=== PATIENT | male | born 1960 | race Caucasian/White ===

== ENCOUNTER → 2016-05-27 | Outpatient (REF) | payer MEDICARE, OTHER ==
[~2016-05-27] MED LIST: ASPI81TA85 PO; CELE-19 PO; ELID1CRE10 TOP; ELIQ5TAB PO; FLEC50TA PO; GARL1000 PO; GINK120C4 PO; GLUCTAB6 PO; KETO-30 TOP; LIPI10TA PO; MONT10TA2 PO; MULTTAB22 PO; SPIR25TA2 PO; TRAM50TA2 PO; TRIPCAP4 PO; VERA240C PO; VITA1CAP7 PO; VITA400C2 PO; ZYRT10CA PO; tps cream
== END ==
LOC: M LAB REF 11:43
PROVIDERS: ATTEND Physician Assistant
DX: J02.9 Acute pharyngitis, unspecified (principal)

== ENCOUNTER → 2017-03-02 | Outpatient (REF) | payer MEDICARE, OTHER | LOC: M LAB REF 09:12 | DX: J02.9 Acute pharyngitis, unspecified (principal) | CPT/HCPCS: 87081 ==

== ENCOUNTER → 2017-10-01 | Outpatient (REF) | payer MEDICARE, OTHER ==
[2017-10-01 18:19] LABS: FERRITIN 205 NG/ML (26-388); IRON (FE) 103 UG/DL (65-175); PERCENT SATURATION 31.6 % (19.7-50.0); TOTAL IRON BINDING CAPACITY 326 UG/DL (250-450)
== END ==
LOC: M LAB REF 17:26
DX: Z01.812 Encounter for preprocedural laboratory examination (principal)
CPT/HCPCS: 83550

== ENCOUNTER → 2018-07-18 | Outpatient (CLI) | payer MEDICARE, OTHER ==
[~2018-07-18] MED LIST changes: -CELE-19 PO; +CELE1CAP4 PO; +D-3-50003 PO; -ELID1CRE10 TOP; +ELID1CRE11 TOP; +FLEC50HA PO; -FLEC50TA PO; +GINK120C3 PO; -GINK120C4 PO; +SPIR-10 PO; -SPIR25TA2 PO; -VITA1CAP7 PO; -VITA400C2 PO; +VITA400C7 PO
--- NOTE | 2018-07-18 16:27 | REP ---
Clinical: Contusion. Technique: AP and lateral views of the right forearm. Findings: No acute fracture or dislocation. Skeletal structures, joint spaces, and surrounding soft tissues appear normal. No subcutaneous emphysema or radiodense foreign body. Impression: No acute fracture or dislocation. Electronically Signed by Mike Novoa MD 07/18/2018 04:19 P
== END ==
LOC: M ADAMS 16:07
PROVIDERS: ATTEND Physician Assistant
DX: S57.81XA Crushing injury of right forearm, initial encounter (principal); X58.XXXA Exposure to other specified factors, initial encounter; Y92.9 Unspecified place or not applicable

== ENCOUNTER 2021-01-25 06:30 | Emergency (ER) | payer OTHER ==
[~2021-01-25] VITALS: Ht 190.5 cm; Wt 86.4 kg
[~2021-01-25 06:30] MED LIST changes: -ASPI81TA85 PO; +ASPI81TA86 PO; +MONT10TA10 PO; -MONT10TA2 PO
[2021-01-25] MEDS ORDERED: NS 1,000 ML IV ONE (08:25)
[2021-01-25] MEDS ORDERED: ONDANSETRON 4MG/2ML VIAL IV ONE (08:25)
[2021-01-25 08:52] LABS: BASO % 0.1 % (0.0-1.0); EOS % 0.5 % (0.0-3.0); HEMATOCRIT 42.1 % (42.0-52.0); HEMOGLOBIN 14.5 g/dl (13.5-17.5); LYMPH # 0.9 10^3/uL (1.5-5.0); LYMPH % 12.1 % (24.0-44.0); MEAN CORPUSCULAR HEMOGLOBIN 29.2 pg (27.0-33.0); MEAN CORPUSCULAR HGB CONC 34.4 g/dl (32.0-36.5); MEAN CORPUSCULAR VOLUME 84.7 fl (80.0-96.0); MONO # 0.9 10^3/uL (0.0-0.8); MONO % 11.3 % (2.0-8.0); NEUTROPHILS # 5.8 10^3/uL (1.5-8.5); NEUTROPHILS % 75.4 % (36.0-66.0); PLATELET COUNT, AUTOMATED 227 10^3/uL (150-450); RED BLOOD COUNT 4.97 10^6/uL (4.30-6.10); WHITE BLOOD COUNT 7.7 10^3/uL (4.0-10.0)
[2021-01-25 09:24] LABS: ALBUMIN 2.9 GM/DL (3.2-5.2); BILIRUBIN,DIRECT 0.2 MG/DL (0.0-0.2); BILIRUBIN,TOTAL 0.8 MG/DL (0.2-1.0); TOTAL PROTEIN 6.2 GM/DL (6.4-8.2)
[2021-01-25] MEDS ORDERED: METOCLOPRAMIDE INJ 10MG/2ML VIAL (J2765 PER 1) IV ONE (10:00)
[2021-01-25] MEDS ORDERED: ACETAMINOPHEN 500 MG TAB PO ONE (10:00)
[2021-01-25] MEDS ORDERED: REGL10TA6 PO (11:03)
[2021-01-25 11:24] VITALS: BP 124/82
== END 2021-01-25 11:25 | disposition home or self-care (01) ==
LOC: M ED 06:30
DX: U07.1 COVID-19 (principal); R11.0 Nausea; R51.9 Headache, unspecified; I48.91 Unspecified atrial fibrillation; Z88.1 Allergy status to other antibiotic agents; Z79.899 Other long term (current) drug therapy
CPT/HCPCS: 80047; 80076; 83690; 85025; 96361; 96374; 96375; 99284; J2405; J2765

== ENCOUNTER → 2021-02-06 | Outpatient (REF) | payer OTHER ==
[~2021-02-06] MED LIST changes: -MONT10TA10 PO; +MONT10TA97 PO; +REGL10TA6 PO
[2021-02-06 12:37] LABS: TOTAL PROTEIN 7.1 GM/DL (6.4-8.2)
[2021-02-07 11:13] LABS: ALBUMIN % 59.1 % (55.8-66.1); ALPHA-1-GLOBULIN % 5.1 % (2.9-4.9); ALPHA-1-GLOBULINS 0.36 GM/DL (0.17-0.41); ALPHA-2-GLOBULINS 0.79 GM/DL (0.42-0.99); ALPHA-2-GLOBULINS % 11.1 % (7.1-11.8); BETA-1-GLOBULINS 0.46 GM/DL (0.28-0.60); BETA-1-GLOBULINS % 6.5 % (4.7-7.2); BETA-2-GLOBULINS 0.32 GM/DL (0.19-0.55); BETA-2-GLOBULINS % 4.5 % (3.2-6.5); GAMMA GLOBULIN % 13.7 % (11.1-18.8); GAMMA GLOBULINS 0.97 GM/DL (0.65-1.58)
== END ==
LOC: M LAB REF 11:26
PROVIDERS: ATTEND Nurse Practitioner Adult Health
DX: E83.51 Hypocalcemia (principal)

== ENCOUNTER → 2022-04-10 | Outpatient (CLI) | payer OTHER ==
[~2022-04-10] MED LIST changes: -GLUCTAB6 PO; +GLUCTAB7 PO
== END ==
LOC: M RAD 12:56
PROVIDERS: ATTEND Nurse Practitioner Family
DX: I83.813 Varicose veins of bilateral lower extremities with pain (principal)

== ENCOUNTER 2023-09-01 10:01 | Day surgery (SDC) | payer OTHER ==
[~2023-09-01] VITALS: Ht 182.9 cm; Wt 81.2 kg
[~2023-09-01 10:01] MED LIST changes: +ALLE10TA62 PO; +ATOR1TAB19 PO; +ECOT81TA5 PO; +EQL50TAB2 PO; +GABA600T4 PO; +GINK125C PO; +MAGN400C PO; +OMEG12004 PO; +VITA100093 PO; +VITA400T26 PO; +VITA500C24 PO; +ZINC50TA26 PO
[2023-09-01] MEDS: NS 1,000 ML IV ONE (10:25)
[2023-09-01] MEDS ORDERED: LIDOCAINE 2% 100MG/5ML SDV (FOR ANES.) As Ordered ONE (10:58)
[2023-09-01] MEDS ORDERED: propofoL 200 MG/20 ML VIAL As Ordered ONE (10:58)
[2023-09-01 11:32] VITALS: TEMP 99.8
[2023-09-01 11:45] VITALS: BP 108/59; O2SAT 98
== END 2023-09-01 12:00 | disposition home or self-care (01) ==
LOC: M OPP 10:01
PROVIDERS: ATTEND Internal Medicine Gastroenterology
DX: Z12.11 Encounter for screening for malignant neoplasm of colon (principal); K64.0 First degree hemorrhoids; K57.30 Diverticulosis of large intestine without perforation or abscess without bleeding; I48.91 Unspecified atrial fibrillation; G47.30 Sleep apnea, unspecified; Z99.89 Dependence on other enabling machines and devices; Z79.02 Long term (current) use of antithrombotics/antiplatelets; Z79.1 Long term (current) use of non-steroidal anti-inflammatories (NSAID); Z79.51 Long term (current) use of inhaled steroids; Z79.891 Long term (current) use of opiate analgesic; Z79.899 Other long term (current) drug therapy

== ENCOUNTER → 2023-10-07 | Outpatient (REF) | payer MEDICARE, OTHER ==
[2023-10-07 18:34] LABS: BASO % 0.6 % (0.0-1.0); EOS # 0.1 10^3/uL (0.0-0.5); HEMATOCRIT 45.4 % (42.0-52.0); HEMOGLOBIN 15.7 g/dl (13.5-17.5); LYMPH # 1.7 10^3/uL (1.5-5.0); LYMPH % 25.7 % (24.0-44.0); MEAN CORPUSCULAR HGB CONC 34.6 g/dl (32.0-36.5); MEAN CORPUSCULAR VOLUME 86.8 fl (80.0-96.0); MONO # 0.4 10^3/uL (0.0-0.8); MONO % 6.2 % (2.0-8.0); NEUTROPHILS # 4.3 10^3/uL (1.5-8.5); NEUTROPHILS % 65.2 % (36.0-66.0); PLATELET COUNT, AUTOMATED 198 10^3/uL (150-450); RED BLOOD COUNT 5.23 10^6/uL (4.30-6.10); WHITE BLOOD COUNT 6.6 10^3/uL (4.0-10.0)
[2023-10-07 19:02] LABS: PERCENT SATURATION 20.6 % (19.7-50.0)
[2023-10-07 19:04] LABS: FERRITIN 35.2 NG/ML (10.5-307.3)
== END ==
LOC: M LABDRWAD 17:20
PROVIDERS: ATTEND Orthopaedic Surgery
DX: Z01.818 Encounter for other preprocedural examination (principal); M16.11 Unilateral primary osteoarthritis, right hip; M25.551 Pain in right hip

== ENCOUNTER → 2023-10-28 | Outpatient (REF) | payer OTHER ==
[~2023-10-28] MED LIST changes: +GABA-1490 PO; -GABA600T4 PO
[2023-10-28 18:52] LABS: APPEARANCE, URINE HAZY (CLEAR); BACTERIA, URINE AUTO NEGATIVE (NEGATIVE); BILIRUBIN, URINE AUTO NEGATIVE (NEGATIVE); BLOOD, URINE BLOOD NEGATIVE (NEGATIVE); COLOR, URINE YELLOW (YELLOW); GLUCOSE, URINE (UA) AUTO NEGATIVE (NEGATIVE); KETONE, URINE AUTO NEGATIVE (NEGATIVE); LEUKOCYTE ESTERASE, URINE AUTO NEGATIVE (NEGATIVE); NITRITE, URINE AUTO NEGATIVE (NEGATIVE); PROTEIN, URINE AUTO NEGATIVE (NEGATIVE); RBC, URINE AUTO 2 /HPF (0-3); SPECIFIC GRAVITY URINE AUTO 1.017 (1.002-1.035); SQUAMOUS EPITHELIAL CELL UR AU 0 /HPF (0-6); WBC, URINE AUTO 1 /HPF (0-3)
== END ==
LOC: M SMT 17:26
PROVIDERS: ATTEND Urology
DX: R31.29 Other microscopic hematuria (principal)

== ENCOUNTER → 2023-11-07 | Outpatient (CLI) | payer OTHER ==
[2023-11-10 13:57] LABS: PSA FREE 1.5 ng/mL; PSA TOTAL 5.7 ng/mL (< OR = 4.0)
== END ==
LOC: M WUC 08:51
PROVIDERS: ATTEND Urology
DX: R97.20 Elevated prostate specific antigen [PSA] (principal)

== ENCOUNTER → 2023-12-19 | Outpatient (REF) | payer OTHER | LOC: M SMT PRO 12:49 | PROVIDERS: ATTEND Urology | DX: C61 Malignant neoplasm of prostate (principal) ==

== ENCOUNTER → 2024-04-07 | Outpatient (REF) | payer OTHER ==
[2024-04-07 16:46] LABS: INR 0.99; PARTIAL THROMBOPLASTIN TIME 30.2 SECONDS (24.8-34.2); PROTHROMBIN TIME 13.4 SECONDS (12.5-14.5)
== END ==
LOC: M LAB REF 16:18
PROVIDERS: ATTEND Internal Medicine
DX: Z01.810 Encounter for preprocedural cardiovascular examination (principal)